=== PATIENT | female | born 1935 | race African-American/Black ===

== ENCOUNTER 2018-12-14 13:54 | Inpatient (IN) ==
[2018-12-14 15:12] LABS: Basophils # 0.1 10*3/uL (0.0-0.2); Basophils % 1.1 % (0.0-0.8); Eosinophils # 0.1 10*3/uL (0.0-0.87); Eosinophils % 2.7 % (0.00-10.9); Hematocrit 34.3 VOL% (35.7-47.0); Hemoglobin 10.7 GM/DL (12.0-16.0); Immature Granulocytes % 0.2 %; Immature Granulocytes Absolute 0.01 #; Lymphocytes % 38.7 % (21.3-54.2); Mean Corpuscular HGB Conc 31.2 GM/DL (32-36); Mean Corpuscular Hemoglobin 25 PG (27-34); Mean Corpuscular Volume 80.7 FL (87-102); Mean Platelet Volume 10.4 FL (9.6-12.0); Monocytes # 0.3 10*3/uL (0.11-0.8); Monocytes % 5.7 % (1.7-12.7); Neutrophils # 2.7 10*3/uL (1.4-7.4); Neutrophils % 51.6 % (38.7-73.9); Platelet Count 287 T/CUMM (130-400); Red Blood Count 4.25 MC/CUMM (3.8-5.5); Red Cell Distribution Width 16.4 % (9.3-17.3); White Blood Count 5.3 T/CUMM (4-12)
[2018-12-14 15:38] LABS: Albumin 3.2 G/DL (3.4-5.0); Bilirubin,Total 0.5 MG/DL (0.2-1.0); Calcium 9.1 MG/DL (8.5-10.1); Osmolality,Calculated 292.3 MOS/KG (273-304); Potassium 4.8 MMOL/L (3.5-5.1); Total Protein 7.4 G/DL (6.4-8.3)
[2018-12-14] MEDS ORDERED: METOPROLOL TARTRATE 5 MG/5 ML VIAL IV STA (15:41)
[2018-12-14] MEDS ORDERED: HYDROmorphone 2 MG/1 ML VIAL ONE (15:53)
[2018-12-14] MEDS ORDERED: ONDANSETRON 4 MG/2 ML VIAL ONE (15:53)
[2018-12-14] MEDS ORDERED: HYDROmorphone 2 MG/1 ML VIAL IV STA (16:00)
[2018-12-14] MEDS ORDERED: ONDANSETRON 4 MG/2 ML VIAL IV STA (16:00)
[2018-12-14 16:17] LABS: Sedimentation Rate-Westergren 78 MM/HR (0-30)
[2018-12-14] MEDS ORDERED: ONDANSETRON 4 MG/2 ML VIAL IV PRN (16:39)
[2018-12-14] MEDS ORDERED: hydrALAZINE 20 MG/1 ML VIAL IV PRN (17:12)
[2018-12-14] MEDS ORDERED: amLODIPine 5 MG TABLET PO SCH (17:14)
[2018-12-14 17:32] LABS: Troponin I 0.261 NG/ML (0.00-0.045)
[2018-12-14] MEDS: ENOXAPARIN 60 MG/0.6 ML SYRINGE SUBCUT SCH (18:02)
[2018-12-14] MEDS: SODIUM CHLORIDE 0.9% 1,000 ML IV SCH (18:02)
[2018-12-14 18:07] LABS: Folate > 24.0 NG/ML (5.4-24.0); Vitamin B12 744 PG/ML (211-911)
[2018-12-14] MEDS: ROSUVASTATIN 20 MG TABLET PO SCH (21:15)
[2018-12-15 05:43] LABS: Basophils % 0.4 % (0.0-0.8); Eosinophils % 0.3 % (0.00-10.9); Hematocrit 30.3 VOL% (35.7-47.0); Hemoglobin 9.4 GM/DL (12.0-16.0); Immature Granulocytes % 0.3 %; Immature Granulocytes Absolute 0.02 #; Lymphocytes # 1.5 10*3/uL (1.4-4.0); Lymphocytes % 20.5 % (21.3-54.2); Mean Corpuscular Hemoglobin 25 PG (27-34); Mean Platelet Volume 12.2 FL (9.6-12.0); Monocytes # 0.2 10*3/uL (0.11-0.8); Monocytes % 3.4 % (1.7-12.7); Neutrophils # 5.3 10*3/uL (1.4-7.4); Neutrophils % 75.1 % (38.7-73.9); Platelet Count 246 T/CUMM (130-400); Red Blood Count 3.74 MC/CUMM (3.8-5.5); Red Cell Distribution Width 16.7 % (9.3-17.3); White Blood Count 7.1 T/CUMM (4-12)
[2018-12-15 05:46] LABS: Apearance,Urine Slightly Hazy (Clear); Bacteria,Urine Occasional /HPF (Few); Bilirubin,Urine Negative (Negative); Blood, Urine Negative (Negative); Glucose,Urine (UA) Negative (Negative); Ketones,Urine Negative (Negative); Mucus,Urine Occasional /LPF (Occasional); Nitrite,Urine Negative (Negative); Protein,Urine >=500 MG/DL; RBC,Urine 1 /HPF (0-4); Squamous Epithelial Cell,Urine Occasional /HPF (0-10); Urine Color Yellow (Yellow); Urine Specific Gravity 1.012 (1.001-1.035); Urine Urobilinogen < 2.0 EU/DL (0.2-1.0); WBC,Urine 3 /HPF (0-6)
[2018-12-15 06:04] LABS: Calcium 8.6 MG/DL (8.5-10.1); Osmolality,Calculated 289.5 MOS/KG (273-304); Potassium 4.9 MMOL/L (3.5-5.1); Risk Ratio 3.62; VLDL CHOLESTEROL 20.4 MG/DL
[2018-12-15] MEDS ORDERED: LEVOTHYROXINE 112 MCG TABLET PO SCH (07:00)
[2018-12-15] MEDS ORDERED: LOSARTAN 50 MG TABLET PO SCH (09:00)
[2018-12-15] MEDS: PANTOPRAZOLE 40 MG TABLET PO SCH (09:25)
[2018-12-15] MEDS: ASPIRIN EC 325 MG TABLET PO SCH (09:25)
[2018-12-15] MEDS: SODIUM CHLORIDE 0.9% 1,000 ML IV SCH (09:31)
[2018-12-15] MEDS ORDERED: amLODIPine 5 MG TABLET PO SCH (10:00)
[2018-12-15] MEDS ORDERED: LORazepam 2 MG/1 ML VIAL IV STA (11:35)
[2018-12-15] MEDS ORDERED: LORazepam 2 MG/1 ML VIAL IV ONE (12:00)
[2018-12-15 14:49] LABS: % Iron Saturation 11.4 % (18-50); Ferritin 26.8 ng/ml (8-252)
[2018-12-15] MEDS: FERROUS SULFATE 325 MG TABLET PO SCH (17:44)
[2018-12-15 18:41] LABS: Folate 15.9 NG/ML (5.4-24.0)
[2018-12-15] MEDS: ENOXAPARIN 60 MG/0.6 ML SYRINGE SUBCUT SCH (19:34)
[2018-12-15] MEDS: ROSUVASTATIN 20 MG TABLET PO SCH (21:08)
[2018-12-15] MEDS: amLODIPine 5 MG TABLET PO SCH (21:08)
[2018-12-16 05:21] LABS: Basophils # 0.1 10*3/uL (0.0-0.2); Basophils % 0.9 % (0.0-0.8); Eosinophils # 0.2 10*3/uL (0.0-0.87); Eosinophils % 2.8 % (0.00-10.9); Hematocrit 30.7 VOL% (35.7-47.0); Hemoglobin 9.6 GM/DL (12.0-16.0); Immature Granulocytes % 0.3 %; Immature Granulocytes Absolute 0.02 #; Lymphocytes # 2.2 10*3/uL (1.4-4.0); Lymphocytes % 37.4 % (21.3-54.2); Mean Corpuscular HGB Conc 31.3 GM/DL (32-36); Mean Corpuscular Hemoglobin 25 PG (27-34); Mean Corpuscular Volume 80.2 FL (87-102); Mean Platelet Volume 11.2 FL (9.6-12.0); Monocytes # 0.3 10*3/uL (0.11-0.8); Monocytes % 5.2 % (1.7-12.7); Neutrophils # 3.1 10*3/uL (1.4-7.4); Neutrophils % 53.4 % (38.7-73.9); Platelet Count 290 T/CUMM (130-400); Red Blood Count 3.83 MC/CUMM (3.8-5.5); Red Cell Distribution Width 16.3 % (9.3-17.3); White Blood Count 5.8 T/CUMM (4-12)
[2018-12-16 05:39] LABS: Calcium 8.3 MG/DL (8.5-10.1); Osmolality,Calculated 292.1 MOS/KG (273-304)
[2018-12-16] MEDS: LEVOTHYROXINE 112 MCG TABLET PO SCH (06:24)
[2018-12-16] MEDS: ASPIRIN EC 325 MG TABLET PO SCH (09:50)
[2018-12-16] MEDS: PANTOPRAZOLE 40 MG TABLET PO SCH (09:50)
[2018-12-16] MEDS: amLODIPine 5 MG TABLET PO SCH ×2 (09:50→21:29)
[2018-12-16] MEDS: FERROUS SULFATE 325 MG TABLET PO SCH (09:50)
[2018-12-16] MEDS: ROSUVASTATIN 20 MG TABLET PO SCH (21:29)
[2018-12-17] MEDS: PANTOPRAZOLE 40 MG TABLET PO SCH (08:55)
[2018-12-17] MEDS: LEVOTHYROXINE 112 MCG TABLET PO SCH (08:55)
[2018-12-17] MEDS: FERROUS SULFATE 325 MG TABLET PO SCH (08:55)
[2018-12-17] MEDS: amLODIPine 5 MG TABLET PO SCH (08:55)
[2018-12-17] MEDS ORDERED: ACETAMINOPHEN 325 MG/10.15 ML UDCUP PO PRN (10:04)
[2018-12-17] MEDS ORDERED: ACETAMINOPHEN 325 MG TABLET PO PRN (10:07)
[2018-12-17] MEDS: DOCUSATE SODIUM 100 MG CAPSULE PO SCH (15:38)
[2018-12-17] MEDS: hydrALAZINE 10 MG TABLET PO SCH ×2 (15:38→21:33)
[2018-12-17] MEDS: CARVEDILOL 3.125 MG TABLET PO SCH ×2 (15:38→21:33)
[2018-12-17] MEDS: DONEPEZIL 5 MG TABLET PO SCH (15:38)
[2018-12-17] MEDS: MEMANTINE 5 MG TABLET PO SCH ×2 (15:38→21:33)
[2018-12-17] MEDS: ROSUVASTATIN 20 MG TABLET PO SCH (21:32)
[2018-12-17 21:43] LABS: Barbiturates Screen,Urine Negative (Negative); Benzodiazepines Screen,Urine Negative (Negative); Cannabinoid Screen,Urine Negative (Negative); Opiate Screen,Urine Negative (Negative); Phencyclidine Screen,Urine Negative (Negative)
[2018-12-18] MEDS: LEVOTHYROXINE 112 MCG TABLET PO SCH (06:21)
[2018-12-18] MEDS: MEMANTINE 5 MG TABLET PO SCH (08:16)
[2018-12-18] MEDS: DOCUSATE SODIUM 100 MG CAPSULE PO SCH (08:16)
[2018-12-18] MEDS: PANTOPRAZOLE 40 MG TABLET PO SCH (08:16)
[2018-12-18] MEDS: FERROUS SULFATE 325 MG TABLET PO SCH (08:16)
[2018-12-18] MEDS: hydrALAZINE 10 MG TABLET PO SCH (08:16)
[2018-12-18] MEDS: CARVEDILOL 3.125 MG TABLET PO SCH (08:16)
[2018-12-18] MEDS: DONEPEZIL 5 MG TABLET PO SCH (08:16)
[2018-12-18] MEDS ORDERED: BISACODYL 10 MG SUPP RECTAL ONE (09:31)
[2018-12-18] MEDS ORDERED: SODIUM PHOSPHATE ENEMA 133 ML BOTTLE RECTAL ONE (09:32)
[2018-12-18 15:31] VITALS: BP 159/85
[2018-12-20 08:53] LABS: Albumin (SPE) 3.7 G/DL (3.2-5.3); Total Protein (Chem) 7.1 G/DL (6.4-8.3)
[2018-12-20 08:54] LABS: Albumin (SPE) Rel % 52.5 %; Alpha 1 (SPE) 0.2 G/DL (0.1-0.4); Alpha 1 (SPE) Rel % 3.4 %; Alpha 2 (SPE) Rel % 13.8 %; Beta (SPE) 0.9 G/DL (0.5-1.1); Beta (SPE) Rel % 12.5 %; Gamma (SPE) 1.3 G/DL (0.7-1.7); Gamma (SPE) Rel % 17.8 %
== END 2018-12-18 13:20 | disposition home health service (06) | DRG 884 ==
LOC: N.ED 13:54 → N.EDINP 15:44 → N.5E 17:24
PROVIDERS: ADMIT Internal Medicine; ATTEND Internal Medicine

== ENCOUNTER 2019-07-14 15:03 | Inpatient (IN) ==
[2019-07-14 17:28] LABS: Basophils # 0.1 10*3/uL (0.0-0.2); Basophils % 0.8 % (0.0-0.8); Eosinophils # 0.1 10*3/uL (0.0-0.87); Eosinophils % 1.6 % (0.00-10.9); Immature Granulocytes % 0.2 %; Immature Granulocytes Absolute 0.01 #; Lymphocytes % 32.2 % (21.3-54.2); Mean Corpuscular HGB Conc 32.3 GM/DL (32-36); Mean Corpuscular Volume 80.3 FL (87-102); Mean Platelet Volume 11.6 FL (9.6-12.0); Monocytes % 7.2 % (1.7-12.7); Platelet Count 241 T/CUMM (130-400); Red Blood Count 3.86 MC/CUMM (3.8-5.5); White Blood Count 6.1 T/CUMM (4-12)
[2019-07-14 17:56] LABS: PT Patient Result 11.2 SECS (9.6-12.2)
[2019-07-14 17:58] LABS: Barbiturates Screen,Urine Negative (Negative); Benzodiazepines Screen,Urine Negative (Negative); Cannabinoid Screen,Urine Negative (Negative); Opiate Screen,Urine Negative (Negative); Phencyclidine Screen,Urine Negative (Negative)
[2019-07-14 18:05] LABS: Apearance,Urine CLEAR (Clear); Bacteria,Urine Occasional /HPF (Few); Bilirubin,Urine Negative (Negative); Blood, Urine Negative (Negative); Glucose,Urine (UA) Negative (Negative); Ketones,Urine Negative (Negative); Mucus,Urine Occasional /LPF (Occasional); Nitrite,Urine Negative (Negative); Protein,Urine 30 MG/DL; RBC,Urine 3 /HPF (0-4); Squamous Epithelial Cell,Urine Occasional /HPF (0-10); Urine Color Straw (Yellow); Urine Specific Gravity 1.005 (1.001-1.035); Urine Urobilinogen < 2.0 EU/DL (0.2-1.0); WBC,Urine <1 /HPF (0-6)
[2019-07-14] MEDS ORDERED: hydrALAZINE 20 MG/1 ML VIAL IV ONE (18:08)
[2019-07-14 18:11] LABS: Albumin 3.7 G/DL (3.4-5.0); Bilirubin,Total 0.5 MG/DL (0.2-1.0); Calcium 9.7 MG/DL (8.5-10.1); Osmolality,Calculated 299.5 MOS/KG (273-304); Thyroid Stimulating Hormone 1.36 uIU/ml (0.358-3.74); Total Protein 8.1 G/DL (6.4-8.3)
[2019-07-14] MEDS ORDERED: ENOXAPARIN 40 MG/0.4 ML SYRINGE ONE (18:19)
[2019-07-14] MEDS: SODIUM CHLORIDE 0.9% 1,000 ML IV SCH (18:28)
[2019-07-14] MEDS ORDERED: hydrALAZINE 20 MG/1 ML VIAL IV PRN (18:41)
[2019-07-14] MEDS: hydrALAZINE 25 MG TABLET PO SCH (20:20)
[2019-07-14] MEDS ORDERED: cloNIDine 0.1 MG TABLET PO SCH (21:00)
[2019-07-14] MEDS ORDERED: ASPIRIN CHEW 81 MG TABLET PO SCH (21:00)
[2019-07-14] MEDS ORDERED: ROSUVASTATIN 20 MG TABLET PO SCH (21:00)
[2019-07-14] MEDS ORDERED: ENOXAPARIN 30 MG/0.3 ML SYRINGE SUBCUT SCH (21:00)
[2019-07-15] MEDS: SODIUM CHLORIDE 0.9% 1,000 ML IV SCH ×2 (03:28→11:41)
[2019-07-15 04:16] LABS: Basophils # 0.1 10*3/uL (0.0-0.2); Eosinophils # 0.2 10*3/uL (0.0-0.87); Eosinophils % 3.2 % (0.00-10.9); Hematocrit 26.7 VOL% (35.7-47.0); Hemoglobin 8.7 GM/DL (12.0-16.0); Immature Granulocytes % 0.4 %; Immature Granulocytes Absolute 0.02 #; Lymphocytes # 1.7 10*3/uL (1.4-4.0); Lymphocytes % 34.9 % (21.3-54.2); Mean Corpuscular HGB Conc 32.6 GM/DL (32-36); Mean Corpuscular Volume 79.9 FL (87-102); Mean Platelet Volume 10.5 FL (9.6-12.0); Monocytes % 12.5 % (1.7-12.7); Platelet Count 200 T/CUMM (130-400); Red Blood Count 3.34 MC/CUMM (3.8-5.5); Red Cell Distribution Width 15.9 % (9.3-17.3)
[2019-07-15 04:59] LABS: Bilirubin,Total 0.8 MG/DL (0.2-1.0); Calcium 8.5 MG/DL (8.5-10.1); Total Protein 6.6 G/DL (6.4-8.3)
[2019-07-15] MEDS ORDERED: LEVOTHYROXINE 125 MCG TABLET PO SCH (07:00)
[2019-07-15] MEDS ORDERED: PANTOPRAZOLE 40 MG TABLET PO SCH (09:00)
[2019-07-15] MEDS ORDERED: POTASSIUM CHLORIDE 20 MEQ TABLET PO SCH (09:00)
[2019-07-15] MEDS ORDERED: LOSARTAN 50 MG TABLET PO SCH (09:00)
[2019-07-15] MEDS ORDERED: FERROUS SULFATE 325 MG TABLET PO SCH (09:00)
[2019-07-15] MEDS ORDERED: FUROSEMIDE 20 MG TABLET PO SCH (09:00)
[2019-07-15] MEDS: hydrALAZINE 25 MG TABLET PO SCH (09:06)
[2019-07-15 10:30] LABS: Troponin I 0.303 NG/ML (0.00-0.045)
[2019-07-15 15:56] VITALS: BP 187/78
== END 2019-07-15 18:00 | disposition home health service (06) | DRG 309 ==
LOC: EDBD → EDUNIT# → N.ED 15:03 → N.EDINP 17:17 → SUATTDRO 17:17 → N.TELEN 18:04
PROVIDERS: ADMIT Emergency Medicine; ATTEND Internal Medicine

== ENCOUNTER 2019-07-18 14:44 | Observation (INO) ==
[2019-07-18 15:25] LABS: Basophils % 0.7 % (0.0-0.8); Eosinophils # 0.2 10*3/uL (0.0-0.87); Eosinophils % 2.5 % (0.00-10.9); Hemoglobin 8.9 GM/DL (12.0-16.0); Immature Granulocytes % 0.3 %; Immature Granulocytes Absolute 0.02 #; Mean Corpuscular HGB Conc 31.8 GM/DL (32-36); Mean Corpuscular Volume 81.2 FL (87-102); Mean Platelet Volume 11.4 FL (9.6-12.0); Monocytes % 8.7 % (1.7-12.7); Neutrophils % 54.8 % (38.7-73.9); Platelet Count 206 T/CUMM (130-400); Red Blood Count 3.45 MC/CUMM (3.8-5.5); Red Cell Distribution Width 15.9 % (9.3-17.3)
[2019-07-18 15:41] LABS: Alanine Aminotransferase 21 U/L (13-56); Albumin 3.4 G/DL (3.4-5.0); Alkaline Phosphatase 72 U/L (45-117); Aspartate Amino Transferase 20 U/L (0-37); Blood Urea Nitrogen 53 MG/DL (7-18); Estimated Glom Filtration Rate 14 ML/MIN; Glucose 86 MG/DL (74-106); Osmolality,Calculated 285.8 MOS/KG (273-304); Total Protein 7.2 G/DL (6.4-8.3)
[2019-07-18] MEDS ORDERED: INSULIN REGULAR 100 UNIT/ML IV STA (17:15)
[2019-07-18] MEDS ORDERED: DEXTROSE 50% 25 GM/50 ML VIAL IV STA (17:16)
[2019-07-18] MEDS ORDERED: ACETAMINOPHEN 325 MG TABLET PO PRN (17:17)
[2019-07-18] MEDS ORDERED: ZALEPLON 5 MG CAPSULE PO PRN (17:17)
[2019-07-18] MEDS ORDERED: guaiFENesin/DM ER 600-30 MG TABLET PO PRN (17:17)
[2019-07-18] MEDS ORDERED: diphenhydrAMINE CAP 25 MG CAPSULE PO PRN (17:17)
[2019-07-18] MEDS ORDERED: ACETAMINOPHEN 500 MG TABLET PO PRN (17:41)
[2019-07-18] MEDS ORDERED: CALCIUM GLUCONATE 1,000 MG in SODIUM CHLORIDE 0.9% 100 ML IV ONE (18:00)
[2019-07-18] MEDS ORDERED: DEXTROSE 50% 25 GM/50 ML SYRINGE IV ONE (18:32)
[2019-07-18] MEDS ORDERED: hydrALAZINE 20 MG/1 ML VIAL IV PRN (20:17)
[2019-07-19] MEDS: ASPIRIN CHEW 81 MG TABLET PO SCH ×2 (00:08→21:52)
[2019-07-19] MEDS: DOCUSATE SODIUM 100 MG CAPSULE PO SCH ×3 (00:10→21:52)
[2019-07-19] MEDS: HEPARIN 5,000 UNIT/1 ML VIAL SUBCUT SCH ×3 (00:10→14:40)
[2019-07-19] MEDS: ROSUVASTATIN 20 MG TABLET PO SCH ×2 (00:10→21:52)
[2019-07-19 04:20] LABS: Troponin I 0.495 NG/ML (0.00-0.045)
[2019-07-19 04:46] LABS: Basophils % 0.6 % (0.0-0.8); Eosinophils # 0.2 10*3/uL (0.0-0.87); Eosinophils % 3.2 % (0.00-10.9); Hematocrit 26.5 VOL% (35.7-47.0); Hemoglobin 8.5 GM/DL (12.0-16.0); Immature Granulocytes % 0.5 %; Immature Granulocytes Absolute 0.03 #; Lymphocytes # 1.8 10*3/uL (1.4-4.0); Lymphocytes % 28.8 % (21.3-54.2); Mean Corpuscular HGB Conc 32.1 GM/DL (32-36); Mean Corpuscular Volume 79.8 FL (87-102); Monocytes % 9.4 % (1.7-12.7); Neutrophils % 57.5 % (38.7-73.9); Platelet Count 207 T/CUMM (130-400); Red Blood Count 3.32 MC/CUMM (3.8-5.5); Red Cell Distribution Width 15.9 % (9.3-17.3); White Blood Count 6.3 T/CUMM (4-12)
[2019-07-19 05:19] LABS: Bilirubin,Total 0.6 MG/DL (0.2-1.0); Total Protein 6.5 G/DL (6.4-8.3)
[2019-07-19 05:23] LABS: Free T4 (Free Thyroxine) 1.38 NG/DL (0.76-1.46); Risk Ratio 1.88; Thyroid Stimulating Hormone 1.73 uIU/ml (0.358-3.74); VLDL CHOLESTEROL 9.2 MG/DL
[2019-07-19] MEDS: LEVOTHYROXINE 125 MCG TABLET PO SCH (06:59)
[2019-07-19] MEDS: FERROUS SULFATE 325 MG TABLET PO SCH (08:59)
[2019-07-19] MEDS: HydrOXYzine PAMOATE 25 MG CAPSULE PO SCH (08:59)
[2019-07-19] MEDS: PANTOPRAZOLE 40 MG TABLET PO SCH (08:59)
[2019-07-19] MEDS ORDERED: LORazepam 2 MG/1 ML VIAL IV ONE (12:18)
[2019-07-19 13:10] LABS: % Iron Saturation 18.3 % (18-50); Uric Acid 7.8 MG/DL (2.6-6.0)
[2019-07-19 15:30] LABS: Total Protein 8.2 G/DL (6.4-8.3)
[2019-07-19 17:35] LABS: HIV Antigen/Antibody Result Nonreactive (Nonreactive); Hepatitis B Surface Ab Result Positive; Hepatitis B Surface Ag Quant 0.26 Index; Hepatitis B Surface Ag Result Negative (Negative); Hepatitis C Virus Ab Quant 0.05 Index; Hepatitis C Virus Ab Result Negative (Negative)
[2019-07-19 19:57] LABS: Apearance,Urine CLEAR (Clear); Bilirubin,Urine Negative (Negative); Blood, Urine Negative (Negative); Glucose,Urine (UA) Negative (Negative); Hyaline Casts,Urine 1 /LPF (0-3); Ketones,Urine Negative (Negative); Mucus,Urine Occasional /LPF (Occasional); Nitrite,Urine Negative (Negative); Protein,Urine 100 MG/DL; RBC,Urine 2 /HPF (0-4); Squamous Epithelial Cell,Urine Occasional /HPF (0-10); Urine Color Yellow (Yellow); Urine Specific Gravity 1.008 (1.001-1.035); Urine Urobilinogen < 2.0 EU/DL (0.2-1.0); WBC,Urine 2 /HPF (0-6)
[2019-07-20 06:15] LABS: Total Protein (Chem) 8.2 G/DL (6.4-8.3)
[2019-07-20] MEDS: LEVOTHYROXINE 125 MCG TABLET PO SCH (06:49)
[2019-07-20 08:03] LABS: Basophils % 0.7 % (0.0-0.8); Eosinophils # 0.2 10*3/uL (0.0-0.87); Eosinophils % 3.8 % (0.00-10.9); Hemoglobin 9.4 GM/DL (12.0-16.0); Immature Granulocytes % 0.3 %; Immature Granulocytes Absolute 0.02 #; Lymphocytes # 1.9 10*3/uL (1.4-4.0); Lymphocytes % 31.3 % (21.3-54.2); Mean Corpuscular HGB Conc 32.4 GM/DL (32-36); Mean Corpuscular Volume 80.6 FL (87-102); Mean Platelet Volume 12.2 FL (9.6-12.0); Monocytes % 9.7 % (1.7-12.7); Neutrophils % 54.2 % (38.7-73.9); Platelet Count 229 T/CUMM (130-400)
[2019-07-20 08:21] LABS: Albumin 3.1 G/DL (3.4-5.0); Bilirubin,Total 0.4 MG/DL (0.2-1.0); Calcium 8.7 MG/DL (8.5-10.1); Osmolality,Calculated 295.3 MOS/KG (273-304)
[2019-07-20] MEDS ORDERED: amLODIPine 5 MG TABLET PO SCH (09:00)
[2019-07-20] MEDS ORDERED: amLODIPine 10 MG TABLET PO SCH (09:00)
[2019-07-20 09:21] LABS: Albumin (SPE) 5.1 G/DL (3.2-5.3); Alpha 1 (SPE) 0.2 G/DL (0.1-0.4); Alpha 1 (SPE) Rel % 2.7 %; Alpha 2 (SPE) 0.9 G/DL (0.4-1.0); Alpha 2 (SPE) Rel % 11.1 %; Beta (SPE) 0.7 G/DL (0.5-1.1); Beta (SPE) Rel % 8.8 %; Gamma (SPE) 1.3 G/DL (0.7-1.7); Gamma (SPE) Rel % 15.4 %
[2019-07-20] MEDS: PANTOPRAZOLE 40 MG TABLET PO SCH (10:00)
[2019-07-20] MEDS: HydrOXYzine PAMOATE 25 MG CAPSULE PO SCH (10:00)
[2019-07-20] MEDS: FERROUS SULFATE 325 MG TABLET PO SCH (10:00)
[2019-07-20] MEDS: DOCUSATE SODIUM 100 MG CAPSULE PO SCH (10:00)
[2019-07-20 12:06] VITALS: BP 162/82
[2019-07-21 14:36] LABS: Myeloperoxidase Antibody < 0.2 U
[2019-07-21 17:21] LABS: Myeloperoxidase Antibodies SEE COMMENTS
== END 2019-07-20 17:45 | disposition home or self-care (01) ==
LOC: N.EDINP 14:44 → N.ED 14:44 → N.TELES 17:40
PROVIDERS: ADMIT Internal Medicine; ATTEND Internal Medicine

== ENCOUNTER 2019-07-21 19:36 | Observation (INO) ==
[2019-07-21 20:46] LABS: Basophils % 0.4 % (0.0-0.8); Eosinophils # 0.2 10*3/uL (0.0-0.87); Eosinophils % 2.3 % (0.00-10.9); Hematocrit 30.7 VOL% (35.7-47.0); Hemoglobin 9.7 GM/DL (12.0-16.0); Immature Granulocytes % 0.4 %; Immature Granulocytes Absolute 0.03 #; Lymphocytes # 2.2 10*3/uL (1.4-4.0); Lymphocytes % 28.5 % (21.3-54.2); Mean Corpuscular HGB Conc 31.6 GM/DL (32-36); Mean Platelet Volume 12.2 FL (9.6-12.0); Monocytes % 6.6 % (1.7-12.7); Neutrophils % 61.8 % (38.7-73.9); Platelet Count 211 T/CUMM (130-400); Red Blood Count 3.79 MC/CUMM (3.8-5.5); Red Cell Distribution Width 16.5 % (9.3-17.3); White Blood Count 7.8 T/CUMM (4-12)
[2019-07-21 20:53] LABS: PT Patient Result 11.1 SECS (9.6-12.2)
[2019-07-21 20:57] LABS: Albumin 3.6 G/DL (3.4-5.0); Bilirubin,Total 0.5 MG/DL (0.2-1.0); Calcium 9.3 MG/DL (8.5-10.1); Osmolality,Calculated 293.3 MOS/KG (273-304); Total Protein 8.1 G/DL (6.4-8.3)
[2019-07-21] MEDS ORDERED: ACETAMINOPHEN 325 MG TABLET PO PRN (23:32)
[2019-07-22 01:13] LABS: Basophils % 0.5 % (0.0-0.8); Eosinophils # 0.2 10*3/uL (0.0-0.87); Eosinophils % 2.8 % (0.00-10.9); Hematocrit 27.6 VOL% (35.7-47.0); Hemoglobin 8.9 GM/DL (12.0-16.0); Immature Granulocytes % 0.3 %; Immature Granulocytes Absolute 0.02 #; Lymphocytes # 2.1 10*3/uL (1.4-4.0); Lymphocytes % 27.9 % (21.3-54.2); Mean Corpuscular HGB Conc 32.2 GM/DL (32-36); Mean Platelet Volume 11.1 FL (9.6-12.0); Monocytes % 8.5 % (1.7-12.7); Platelet Count 217 T/CUMM (130-400); Red Blood Count 3.45 MC/CUMM (3.8-5.5); Red Cell Distribution Width 16.3 % (9.3-17.3); White Blood Count 7.6 T/CUMM (4-12)
[2019-07-22 01:35] LABS: Troponin I 0.459 NG/ML (0.00-0.045)
[2019-07-22 01:50] LABS: Albumin 3.6 G/DL (3.4-5.0); Bilirubin,Total 0.4 MG/DL (0.2-1.0); Calcium 9.7 MG/DL (8.5-10.1); Osmolality,Calculated 299.8 MOS/KG (273-304); Thyroid Stimulating Hormone 1.25 uIU/ml (0.358-3.74); Total Protein 6.8 G/DL (6.4-8.3)
[2019-07-22 06:12] LABS: Troponin I 0.501 NG/ML (0.00-0.045)
[2019-07-22] MEDS: LEVOTHYROXINE 125 MCG TABLET PO SCH (06:24)
[2019-07-22 08:54] LABS: Apearance,Urine Slightly Hazy (Clear); Bacteria,Urine Occasional /HPF (Few); Bilirubin,Urine Negative (Negative); Blood, Urine Negative (Negative); Glucose,Urine (UA) Negative (Negative); Ketones,Urine Negative (Negative); Mucus,Urine Occasional /LPF (Occasional); Nitrite,Urine Negative (Negative); Protein,Urine 100 MG/DL; RBC,Urine 4 /HPF (0-4); Squamous Epithelial Cell,Urine Occasional /HPF (0-10); Urine Color Yellow (Yellow); Urine Urobilinogen < 2.0 EU/DL (0.2-1.0); WBC,Urine 55 /HPF (0-6)
[2019-07-22] MEDS: amLODIPine 10 MG TABLET PO SCH (12:16)
[2019-07-22] MEDS: FERROUS SULFATE 325 MG TABLET PO SCH (12:16)
[2019-07-22] MEDS: PANTOPRAZOLE 40 MG TABLET PO SCH (12:16)
[2019-07-22] MEDS: LEVOFLOXACIN INJ 500 MG in PREMIX 1 EACH IV SCH (12:20)
[2019-07-22 12:49] LABS: Troponin I 0.485 NG/ML (0.00-0.045)
[2019-07-22] MEDS: carvediloL 3.125 MG TABLET PO SCH (20:45)
[2019-07-22] MEDS: ROSUVASTATIN 20 MG TABLET PO SCH (20:45)
[2019-07-22] MEDS: ASPIRIN CHEW 81 MG TABLET PO SCH (20:45)
[2019-07-23] MEDS: amLODIPine 10 MG TABLET PO SCH (09:15)
[2019-07-23] MEDS: FERROUS SULFATE 325 MG TABLET PO SCH (09:16)
[2019-07-23] MEDS: PANTOPRAZOLE 40 MG TABLET PO SCH (09:16)
[2019-07-23] MEDS: carvediloL 3.125 MG TABLET PO SCH ×2 (09:16→21:23)
[2019-07-23] MEDS: LEVOTHYROXINE 125 MCG TABLET PO SCH (09:17)
[2019-07-23] MEDS: ASCORBIC ACID 500 MG TABLET PO SCH ×2 (11:23→21:23)
[2019-07-23] MEDS ORDERED: ONDANSETRON 4 MG/2 ML VIAL IV PRN (18:17)
[2019-07-23] MEDS: ASPIRIN CHEW 81 MG TABLET PO SCH (18:32)
[2019-07-23] MEDS: ROSUVASTATIN 20 MG TABLET PO SCH (21:23)
[2019-07-24 05:39] LABS: Basophils % 0.5 % (0.0-0.8); Eosinophils # 0.2 10*3/uL (0.0-0.87); Eosinophils % 2.6 % (0.00-10.9); Hematocrit 26.5 VOL% (35.7-47.0); Hemoglobin 8.5 GM/DL (12.0-16.0); Immature Granulocytes % 0.3 %; Immature Granulocytes Absolute 0.02 #; Lymphocytes # 1.6 10*3/uL (1.4-4.0); Lymphocytes % 25.3 % (21.3-54.2); Mean Corpuscular HGB Conc 32.1 GM/DL (32-36); Mean Corpuscular Volume 80.5 FL (87-102); Mean Platelet Volume 11.4 FL (9.6-12.0); Monocytes % 7.7 % (1.7-12.7); Neutrophils % 63.6 % (38.7-73.9); Platelet Count 224 T/CUMM (130-400); Red Blood Count 3.29 MC/CUMM (3.8-5.5); Red Cell Distribution Width 16.2 % (9.3-17.3); White Blood Count 6.5 T/CUMM (4-12)
[2019-07-24] MEDS: LEVOTHYROXINE 125 MCG TABLET PO SCH (06:00)
[2019-07-24 06:06] LABS: Calcium 9.6 MG/DL (8.5-10.1)
[2019-07-24] MEDS ORDERED: SODIUM POLYSTYRENE SULFATE 15 GM/60 ML BOTTLE PO STA (08:34)
[2019-07-24] MEDS: amLODIPine 10 MG TABLET PO SCH (08:51)
[2019-07-24] MEDS: FERROUS SULFATE 325 MG TABLET PO SCH (08:51)
[2019-07-24] MEDS: PANTOPRAZOLE 40 MG TABLET PO SCH (08:52)
[2019-07-24] MEDS: ASCORBIC ACID 500 MG TABLET PO SCH ×2 (08:52→21:15)
[2019-07-24] MEDS: carvediloL 3.125 MG TABLET PO SCH ×2 (08:52→21:15)
[2019-07-24] MEDS: LEVOFLOXACIN INJ 500 MG in PREMIX 1 EACH IV SCH (11:02)
[2019-07-24 13:27] LABS: % Iron Saturation 14.8 % (18-50); Ferritin 74.9 ng/ml (8-252)
[2019-07-24] MEDS: ASPIRIN CHEW 81 MG TABLET PO SCH (18:12)
[2019-07-24] MEDS: ROSUVASTATIN 20 MG TABLET PO SCH (21:14)
[2019-07-25] MEDS: LEVOTHYROXINE 125 MCG TABLET PO SCH (07:43)
[2019-07-25] MEDS: carvediloL 3.125 MG TABLET PO SCH (10:15)
[2019-07-25] MEDS: FERROUS SULFATE 325 MG TABLET PO SCH (10:15)
[2019-07-25] MEDS: amLODIPine 10 MG TABLET PO SCH (10:16)
[2019-07-25] MEDS: PANTOPRAZOLE 40 MG TABLET PO SCH (10:18)
[2019-07-25] MEDS: ASCORBIC ACID 500 MG TABLET PO SCH (10:18)
[2019-07-25 12:56] VITALS: BP 150/70
== END 2019-07-25 14:20 | disposition home health service (06) ==
LOC: EDUNIT# → EDBD → N.EDINP 19:36 → N.ED 19:36 → N.TELES 07-22 00:30
PROVIDERS: ADMIT Internal Medicine; ATTEND Internal Medicine

== ENCOUNTER 2019-08-03 19:22 | Observation (INO) ==
[2019-08-03 21:12] LABS: Basophils % 0.4 % (0.0-0.8); Eosinophils # 0.1 10*3/uL (0.0-0.87); Eosinophils % 1.8 % (0.00-10.9); Hematocrit 31.6 VOL% (35.7-47.0); Immature Granulocytes % 0.4 %; Immature Granulocytes Absolute 0.03 #; Lymphocytes # 2.3 10*3/uL (1.4-4.0); Lymphocytes % 30.8 % (21.3-54.2); Mean Corpuscular HGB Conc 31.6 GM/DL (32-36); Mean Corpuscular Volume 80.8 FL (87-102); Mean Platelet Volume 10.6 FL (9.6-12.0); Monocytes % 7.4 % (1.7-12.7); Neutrophils % 59.2 % (38.7-73.9); Platelet Count 321 T/CUMM (130-400); Red Blood Count 3.91 MC/CUMM (3.8-5.5); Red Cell Distribution Width 16.5 % (9.3-17.3); White Blood Count 7.3 T/CUMM (4-12)
[2019-08-03 21:35] LABS: Alanine Aminotransferase 23 U/L (13-56); Albumin 3.5 G/DL (3.4-5.0); Alkaline Phosphatase 74 U/L (45-117); Aspartate Amino Transferase 21 U/L (0-37); Blood Urea Nitrogen 53 MG/DL (7-18); Calcium 8.9 MG/DL (8.5-10.1); Estimated Glom Filtration Rate 11 ML/MIN; Glucose 113 MG/DL (74-106); Osmolality,Calculated 287.8 MOS/KG (273-304); Total Protein 7.5 G/DL (6.4-8.3); Troponin I 0.374 NG/ML (0.00-0.045)
[2019-08-04 00:29] LABS: Barbiturates Screen,Urine Negative (Negative); Benzodiazepines Screen,Urine Negative (Negative); Cannabinoid Screen,Urine Negative (Negative); Opiate Screen,Urine Negative (Negative); Phencyclidine Screen,Urine Negative (Negative)
[2019-08-04] MEDS ORDERED: ONDANSETRON 4 MG/2 ML VIAL IV PRN (00:32)
[2019-08-04] MEDS ORDERED: ACETAMINOPHEN 325 MG TABLET PO PRN (00:32)
[2019-08-04] MEDS: SODIUM CHLORIDE 0.9% 1,000 ML IV SCH ×2 (03:23→17:07)
[2019-08-04 05:25] LABS: Basophils % 0.5 % (0.0-0.8); Eosinophils # 0.2 10*3/uL (0.0-0.87); Eosinophils % 2.8 % (0.00-10.9); Hematocrit 25.7 VOL% (35.7-47.0); Hemoglobin 8.3 GM/DL (12.0-16.0); Immature Granulocytes % 0.8 %; Immature Granulocytes Absolute 0.05 #; Lymphocytes # 1.7 10*3/uL (1.4-4.0); Lymphocytes % 27.2 % (21.3-54.2); Mean Corpuscular HGB Conc 32.3 GM/DL (32-36); Mean Corpuscular Volume 79.6 FL (87-102); Mean Platelet Volume 10.2 FL (9.6-12.0); Monocytes % 9.4 % (1.7-12.7); Neutrophils % 59.3 % (38.7-73.9); Platelet Count 251 T/CUMM (130-400); Red Blood Count 3.23 MC/CUMM (3.8-5.5); Red Cell Distribution Width 16.3 % (9.3-17.3); White Blood Count 6.2 T/CUMM (4-12)
[2019-08-04 05:49] LABS: Calcium 8.8 MG/DL (8.5-10.1); Osmolality,Calculated 292.4 MOS/KG (273-304)
[2019-08-04] MEDS: LEVOTHYROXINE 125 MCG TABLET PO SCH (06:15)
[2019-08-04] MEDS: FERROUS SULFATE 325 MG TABLET PO SCH (09:16)
[2019-08-04] MEDS: carvediloL 3.125 MG TABLET PO SCH ×2 (09:16→16:03)
[2019-08-04] MEDS: ENOXAPARIN 30 MG/0.3 ML SYRINGE SUBCUT SCH (09:16)
[2019-08-04] MEDS: amLODIPine 10 MG TABLET PO SCH (09:16)
[2019-08-04] MEDS: PANTOPRAZOLE 40 MG TABLET PO SCH (09:18)
[2019-08-04] MEDS: ASPIRIN CHEW 81 MG TABLET PO SCH (18:01)
[2019-08-04] MEDS: ROSUVASTATIN 20 MG TABLET PO SCH (20:53)
[2019-08-05 04:45] LABS: Basophils % 0.6 % (0.0-0.8); Eosinophils # 0.2 10*3/uL (0.0-0.87); Hematocrit 23.6 VOL% (35.7-47.0); Hemoglobin 7.5 GM/DL (12.0-16.0); Immature Granulocytes % 0.4 %; Immature Granulocytes Absolute 0.02 #; Lymphocytes # 1.6 10*3/uL (1.4-4.0); Lymphocytes % 29.7 % (21.3-54.2); Mean Corpuscular HGB Conc 31.8 GM/DL (32-36); Mean Corpuscular Volume 80.5 FL (87-102); Mean Platelet Volume 10.7 FL (9.6-12.0); Monocytes % 8.3 % (1.7-12.7); Platelet Count 237 T/CUMM (130-400); Red Blood Count 2.93 MC/CUMM (3.8-5.5); Red Cell Distribution Width 16.6 % (9.3-17.3); White Blood Count 5.4 T/CUMM (4-12)
[2019-08-05 05:14] LABS: % Iron Saturation 24.2 % (18-50); Ferritin 71.3 ng/ml (8-252)
[2019-08-05] MEDS: LEVOTHYROXINE 125 MCG TABLET PO SCH (06:10)
[2019-08-05] MEDS: SODIUM CHLORIDE 0.9% 1,000 ML IV SCH ×2 (06:10→17:59)
[2019-08-05 07:53] LABS: Folate 14.3 NG/ML (5.4-24.0)
[2019-08-05] MEDS: amLODIPine 10 MG TABLET PO SCH (09:21)
[2019-08-05] MEDS: PANTOPRAZOLE 40 MG TABLET PO SCH (09:21)
[2019-08-05] MEDS: FERROUS SULFATE 325 MG TABLET PO SCH (09:21)
[2019-08-05] MEDS: carvediloL 3.125 MG TABLET PO SCH ×2 (09:21→16:44)
[2019-08-05] MEDS: ENOXAPARIN 30 MG/0.3 ML SYRINGE SUBCUT SCH (09:21)
[2019-08-05] MEDS: ASPIRIN CHEW 81 MG TABLET PO SCH (18:01)
[2019-08-05] MEDS: ROSUVASTATIN 20 MG TABLET PO SCH (20:54)
[2019-08-06 05:29] LABS: Basophils % 0.6 % (0.0-0.8); Eosinophils # 0.2 10*3/uL (0.0-0.87); Eosinophils % 3.1 % (0.00-10.9); Hematocrit 21.3 VOL% (35.7-47.0); Immature Granulocytes % 0.6 %; Immature Granulocytes Absolute 0.03 #; Lymphocytes # 1.7 10*3/uL (1.4-4.0); Lymphocytes % 32.8 % (21.3-54.2); Mean Corpuscular HGB Conc 31.5 GM/DL (32-36); Mean Platelet Volume 11.2 FL (9.6-12.0); Monocytes % 8.1 % (1.7-12.7); Neutrophils % 54.8 % (38.7-73.9); Platelet Count 224 T/CUMM (130-400); Red Blood Count 2.63 MC/CUMM (3.8-5.5); Red Cell Distribution Width 16.6 % (9.3-17.3); White Blood Count 5.2 T/CUMM (4-12)
[2019-08-06 05:30] LABS: Hemoglobin 6.7 GM/DL (12.0-16.0)
[2019-08-06 05:38] LABS: Calcium 8.2 MG/DL (8.5-10.1); Osmolality,Calculated 305.4 MOS/KG (273-304)
[2019-08-06] MEDS: LEVOTHYROXINE 125 MCG TABLET PO SCH (06:18)
[2019-08-06] MEDS: SODIUM CHLORIDE 0.9% 1,000 ML IV SCH ×2 (06:21→19:04)
[2019-08-06] MEDS ORDERED: SODIUM CHLORIDE 0.9% 1,000 ML IV PRN (08:19)
[2019-08-06 08:41] LABS: Basophils % 0.6 % (0.0-0.8); Eosinophils # 0.2 10*3/uL (0.0-0.87); Eosinophils % 3.9 % (0.00-10.9); Hematocrit 22.9 VOL% (35.7-47.0); Hematocrit 23.3 VOL% (35.7-47.0); Hemoglobin 7.3 GM/DL (12.0-16.0); Immature Granulocytes % 0.2 %; Immature Granulocytes Absolute 0.01 #; Lymphocytes # 1.6 10*3/uL (1.4-4.0); Lymphocytes % 33.3 % (21.3-54.2); Mean Corpuscular HGB Conc 31.3 GM/DL (32-36); Mean Corpuscular Volume 81.5 FL (87-102); Mean Platelet Volume 9.9 FL (9.6-12.0); Monocytes % 7.7 % (1.7-12.7); Neutrophils % 54.3 % (38.7-73.9); Platelet Count 229 T/CUMM (130-400); Red Blood Count 2.86 MC/CUMM (3.8-5.5); Red Cell Distribution Width 16.7 % (9.3-17.3); White Blood Count 4.9 T/CUMM (4-12)
[2019-08-06 08:58] LABS: Hypochromasia 1+; Ovalocytes Slight; Platelet Estimate Adequate
[2019-08-06] MEDS: amLODIPine 10 MG TABLET PO SCH (09:32)
[2019-08-06] MEDS: FERROUS SULFATE 325 MG TABLET PO SCH (09:32)
[2019-08-06] MEDS: carvediloL 3.125 MG TABLET PO SCH ×2 (09:32→17:13)
[2019-08-06] MEDS: PANTOPRAZOLE 40 MG VIAL IV SCH ×2 (09:32→20:59)
[2019-08-06] MEDS ORDERED: POLYETHYLENE GLYCOL POWDER 17 GM PACK PO PRN (10:06)
[2019-08-06] MEDS: DOCUSATE SODIUM 100 MG CAPSULE PO SCH (10:59)
[2019-08-06 15:58] LABS: % Iron Saturation 23.4 % (18-50)
[2019-08-06] MEDS: ASPIRIN CHEW 81 MG TABLET PO SCH (18:06)
[2019-08-06] MEDS: ROSUVASTATIN 20 MG TABLET PO SCH (20:59)
[2019-08-07] MEDS: LEVOTHYROXINE 125 MCG TABLET PO SCH (06:26)
[2019-08-07 06:29] LABS: Basophils % 0.3 % (0.0-0.8); Eosinophils # 0.2 10*3/uL (0.0-0.87); Eosinophils % 3.9 % (0.00-10.9); Immature Granulocytes % 0.5 %; Immature Granulocytes Absolute 0.03 #; Lymphocytes # 1.5 10*3/uL (1.4-4.0); Lymphocytes % 25.3 % (21.3-54.2); Mean Corpuscular HGB Conc 32.1 GM/DL (32-36); Mean Corpuscular Volume 81.6 FL (87-102); Mean Platelet Volume 11.3 FL (9.6-12.0); Monocytes % 8.3 % (1.7-12.7); Neutrophils % 61.7 % (38.7-73.9); Platelet Count 214 T/CUMM (130-400); Red Blood Count 3.43 MC/CUMM (3.8-5.5); Red Cell Distribution Width 16.2 % (9.3-17.3); White Blood Count 5.9 T/CUMM (4-12)
[2019-08-07 06:52] LABS: Calcium 8.6 MG/DL (8.5-10.1)
[2019-08-07] MEDS: amLODIPine 10 MG TABLET PO SCH (09:27)
[2019-08-07] MEDS: carvediloL 3.125 MG TABLET PO SCH (09:28)
[2019-08-07] MEDS: PANTOPRAZOLE 40 MG VIAL IV SCH (09:28)
[2019-08-07] MEDS: DOCUSATE SODIUM 100 MG CAPSULE PO SCH (09:28)
[2019-08-07] MEDS: FERROUS SULFATE 325 MG TABLET PO SCH (09:28)
[2019-08-07] MEDS: SODIUM CHLORIDE 0.9% 1,000 ML IV SCH (09:35)
[2019-08-07 11:51] VITALS: BP 123/52
== END 2019-08-07 13:37 | disposition home or self-care (01) ==
LOC: N.ED 19:22 → N.EDINP 08-04 00:32 → INTOOBSV 08-04 00:32 → N.TELES 08-04 01:16
PROVIDERS: ADMIT Internal Medicine; ATTEND Internal Medicine

== ENCOUNTER 2021-03-20 19:31 | Inpatient (IN) ==
[2021-03-20] MEDS ORDERED: DEXTROSE 50% 25 GM/50 ML VIAL IV PRN (23:59)
[2021-03-20] MEDS ORDERED: GLUCAGON 1 MG VIAL IM PRN (23:59)
[2021-03-20] MEDS ORDERED: ONDANSETRON 4 MG/2 ML VIAL IV PRN (23:59)
[2021-03-21] MEDS ORDERED: SODIUM CHLORIDE 0.9% 1,000 ML IV PRN (00:09)
[2021-03-21 00:44] LABS: Basophils % 0.4 % (0.0-0.8); Eosinophils # 0.1 10*3/uL (0.0-0.87); Eosinophils % 1.4 % (0.00-10.9); Immature Granulocytes % 0.5 %; Immature Granulocytes Absolute 0.04 #; Lymphocytes # 1.8 10*3/uL (1.4-4.0); Lymphocytes % 21.2 % (21.3-54.2); Mean Corpuscular HGB Conc 32.6 GM/DL (32-36); Mean Corpuscular Volume 83.7 FL (87-102); Mean Platelet Volume 10.4 FL (9.6-12.0); Monocytes % 6.8 % (1.7-12.7); Neutrophils % 69.7 % (38.7-73.9); Platelet Count 177 T/CUMM (130-400); Red Blood Count 2.27 MC/CUMM (3.8-5.5); Red Cell Distribution Width 14.6 % (9.3-17.3); White Blood Count 8.4 T/CUMM (4-12)
[2021-03-21 00:53] LABS: Hemoglobin 6.2 GM/DL (12.0-16.0)
[2021-03-21 01:11] LABS: Folate 12.15 NG/ML (5.38-24.0); Vitamin B12 > 2000 PG/ML (211-911)
[2021-03-21 02:04] LABS: Sedimentation Rate-Westergren 95 MM/HR (0-30)
[2021-03-21] MEDS: ACETAMINOPHEN 325 MG TABLET PO PRN (03:00)
[2021-03-21 08:08] LABS: Alanine Aminotransferase 35 U/L (13-56); Albumin 3.5 G/DL (3.4-5.0); Alkaline Phosphatase 105 U/L (45-117); Aspartate Amino Transferase 20 U/L (0-37); Bilirubin,Total < 0.39 MG/DL (0.2-1.0); Blood Urea Nitrogen 84 MG/DL (7-18); Calcium 7.9 MG/DL (8.5-10.1); Carbon Dioxide 15 MMOL/L (21-32); Estimated Glom Filtration Rate 3 ML/MIN; Glucose 87 MG/DL (74-106); Osmolality,Calculated 299.7 MOS/KG (273-304); Potassium 5.4 MMOL/L (3.5-5.1); Sodium 138 MMOL/L (136-145); Total Protein 7.3 G/DL (6.4-8.2)
[2021-03-21 08:45] LABS: % Iron Saturation 30.9 % (18-50)
[2021-03-21 09:08] LABS: Hemoglobin A1 (Alkaline) 97.8 % (96.5-98.5); Hemoglobin A2 (Alkaline) 2.2 % (1.5-3.5)
[2021-03-21] MEDS ORDERED: SODIUM POLYSTYRENE SULFATE 15 GM/60 ML BOTTLE PO STA (09:20)
[2021-03-21] MEDS: PANTOPRAZOLE 40 MG TABLET PO SCH (09:42)
[2021-03-21] MEDS: FERROUS SULFATE 325 MG TABLET PO SCH (09:42)
[2021-03-21] MEDS: ASCORBIC ACID 500 MG TABLET PO SCH ×2 (09:43→20:48)
[2021-03-21] MEDS: LEVOTHYROXINE 100 MCG TABLET PO SCH (09:46)
[2021-03-21 09:56] LABS: Basophils % 0.2 % (0.0-0.8); Eosinophils # 0.1 10*3/uL (0.0-0.87); Eosinophils % 1.6 % (0.00-10.9); Hematocrit 30.2 VOL% (35.7-47.0); Immature Granulocytes % 0.6 %; Immature Granulocytes Absolute 0.05 #; Lymphocytes # 1.6 10*3/uL (1.4-4.0); Lymphocytes % 17.3 % (21.3-54.2); Mean Corpuscular HGB Conc 31.8 GM/DL (32-36); Mean Platelet Volume 10.5 FL (9.6-12.0); Monocytes % 6.4 % (1.7-12.7); Neutrophils % 73.9 % (38.7-73.9); Platelet Count 174 T/CUMM (130-400); Red Cell Distribution Width 14.9 % (9.3-17.3); White Blood Count 8.9 T/CUMM (4-12)
[2021-03-21 09:59] LABS: Red Blood Count 3.51 MC/CUMM (3.8-5.5)
[2021-03-21 10:00] LABS: Hemoglobin 9.6 GM/DL (12.0-16.0)
[2021-03-21 13:37] LABS: Calcium 7.6 MG/DL (8.5-10.1); Osmolality,Calculated 300.7 MOS/KG (273-304); Potassium 5.1 MMOL/L (3.5-5.1)
[2021-03-21 15:58] LABS: Hepatitis B Core IgM Quant 0.12 Index; Hepatitis B Surface Ag Quant < 0.10 Index; Hepatitis B Surface Ag Result Non-Reactive (NonReactive); Hepatitis C Virus Ab Quant 0.02 Index; Hepatitis C Virus Ab Result Non-Reactive (NonReactive)
[2021-03-21] MEDS: ROSUVASTATIN 20 MG TABLET PO SCH (20:48)
[2021-03-21] MEDS: ASPIRIN CHEW 81 MG TABLET PO SCH (20:48)
[2021-03-22 05:16] LABS: Basophils % 0.5 % (0.0-0.8); Eosinophils # 0.2 10*3/uL (0.0-0.87); Hematocrit 28.5 VOL% (35.7-47.0); Hemoglobin 9.3 GM/DL (12.0-16.0); Immature Granulocytes % 0.5 %; Immature Granulocytes Absolute 0.04 #; Lymphocytes # 1.5 10*3/uL (1.4-4.0); Lymphocytes % 19.8 % (21.3-54.2); Mean Corpuscular HGB Conc 32.6 GM/DL (32-36); Mean Corpuscular Volume 84.3 FL (87-102); Mean Platelet Volume 11.2 FL (9.6-12.0); Neutrophils % 71.2 % (38.7-73.9); Platelet Count 188 T/CUMM (130-400); Red Blood Count 3.38 MC/CUMM (3.8-5.5); Red Cell Distribution Width 14.7 % (9.3-17.3); White Blood Count 7.7 T/CUMM (4-12)
[2021-03-22 05:49] LABS: Osmolality,Calculated 306.1 MOS/KG (273-304); Potassium 4.8 MMOL/L (3.5-5.1)
[2021-03-22] MEDS: LEVOTHYROXINE 100 MCG TABLET PO SCH (06:30)
[2021-03-22] MEDS: FERROUS SULFATE 325 MG TABLET PO SCH (09:17)
[2021-03-22] MEDS: PANTOPRAZOLE 40 MG TABLET PO SCH (09:17)
[2021-03-22] MEDS: ASCORBIC ACID 500 MG TABLET PO SCH ×2 (09:17→21:02)
[2021-03-22] MEDS ORDERED: CLINDAMYCIN INJ 900 MG/50 ML PREMIX IV ONE (09:45)
[2021-03-22] MEDS ORDERED: HEPARIN 5,000 UNIT/1 ML VIAL ONE (09:51)
[2021-03-22] MEDS ORDERED: BUPIVACAINE MPF 0.25% 30 ML VIAL ONE (09:51)
[2021-03-22] MEDS ORDERED: LIDOCAINE 1%/EPI INJ 20 ML VIAL ONE (09:51)
[2021-03-22] MEDS ORDERED: KETAMINE 500 MG/10 ML VIAL ONE (10:00)
[2021-03-22] MEDS ORDERED: MIDAZOLAM 2 MG/2 ML VIAL ONE (10:00)
[2021-03-22] MEDS ORDERED: LIDOCAINE 2% 5 ML VIAL ONE (10:00)
[2021-03-22] MEDS ORDERED: ETOMIDATE 40 MG/20 ML VIAL IV ONE (10:00)
[2021-03-22] MEDS ORDERED: ONDANSETRON 4 MG/2 ML VIAL ONE (10:30)
[2021-03-22] MEDS ORDERED: SODIUM CHLORIDE 0.9% 250 ML IV SCH (10:30)
[2021-03-22] MEDS ORDERED: HEPARIN 10,000 UNIT/10 ML VIAL IV SCH (17:45)
[2021-03-22] MEDS: ROSUVASTATIN 20 MG TABLET PO SCH (21:02)
[2021-03-22] MEDS: ASPIRIN CHEW 81 MG TABLET PO SCH (21:02)
[2021-03-22] MEDS: ACETAMINOPHEN 325 MG TABLET PO PRN (21:03)
[2021-03-22] MEDS: METOPROLOL TARTRATE 25 MG TABLET PO SCH (21:05)
[2021-03-23] MEDS: LEVOTHYROXINE 100 MCG TABLET PO SCH (06:16)
[2021-03-23 06:18] LABS: Basophils % 0.4 % (0.0-0.8); Eosinophils # 0.1 10*3/uL (0.0-0.87); Eosinophils % 1.9 % (0.00-10.9); Hemoglobin 9.5 GM/DL (12.0-16.0); Immature Granulocytes % 0.4 %; Immature Granulocytes Absolute 0.03 #; Lymphocytes # 1.3 10*3/uL (1.4-4.0); Lymphocytes % 17.9 % (21.3-54.2); Mean Corpuscular HGB Conc 32.8 GM/DL (32-36); Mean Corpuscular Volume 83.6 FL (87-102); Mean Platelet Volume 10.7 FL (9.6-12.0); Monocytes % 8.6 % (1.7-12.7); Neutrophils % 70.8 % (38.7-73.9); Platelet Count 173 T/CUMM (130-400); Red Blood Count 3.47 MC/CUMM (3.8-5.5); Red Cell Distribution Width 14.5 % (9.3-17.3); White Blood Count 7.3 T/CUMM (4-12)
[2021-03-23 06:36] LABS: Calcium 7.9 MG/DL (8.5-10.1); Osmolality,Calculated 292.3 MOS/KG (273-304); Potassium 4.4 MMOL/L (3.5-5.1)
[2021-03-23] MEDS: FERROUS SULFATE 325 MG TABLET PO SCH (14:15)
[2021-03-23] MEDS: PANTOPRAZOLE 40 MG TABLET PO SCH (14:16)
[2021-03-23] MEDS: ASCORBIC ACID 500 MG TABLET PO SCH ×2 (14:16→20:35)
[2021-03-23] MEDS: amLODIPine 10 MG TABLET PO SCH (14:16)
[2021-03-23] MEDS: METOPROLOL TARTRATE 25 MG TABLET PO SCH ×2 (14:16→20:35)
[2021-03-23] MEDS: ASPIRIN CHEW 81 MG TABLET PO SCH (20:35)
[2021-03-23] MEDS: ROSUVASTATIN 20 MG TABLET PO SCH (20:35)
[2021-03-24] MEDS: LEVOTHYROXINE 100 MCG TABLET PO SCH (06:03)
[2021-03-24 06:29] LABS: Basophils % 0.3 % (0.0-0.8); Eosinophils # 0.1 10*3/uL (0.0-0.87); Eosinophils % 1.8 % (0.00-10.9); Hematocrit 28.8 VOL% (35.7-47.0); Hemoglobin 9.2 GM/DL (12.0-16.0); Immature Granulocytes % 0.3 %; Immature Granulocytes Absolute 0.02 #; Lymphocytes # 1.4 10*3/uL (1.4-4.0); Lymphocytes % 21.1 % (21.3-54.2); Mean Corpuscular HGB Conc 31.9 GM/DL (32-36); Mean Corpuscular Volume 86.2 FL (87-102); Mean Platelet Volume 11.2 FL (9.6-12.0); Monocytes % 9.6 % (1.7-12.7); Neutrophils % 66.9 % (38.7-73.9); Platelet Count 167 T/CUMM (130-400); Red Blood Count 3.34 MC/CUMM (3.8-5.5); Red Cell Distribution Width 14.3 % (9.3-17.3); White Blood Count 6.8 T/CUMM (4-12)
[2021-03-24 06:40] LABS: Calcium 7.8 MG/DL (8.5-10.1); Osmolality,Calculated 281.4 MOS/KG (273-304); Potassium 4.2 MMOL/L (3.5-5.1)
[2021-03-24] MEDS: METOPROLOL TARTRATE 25 MG TABLET PO SCH ×2 (08:55→20:39)
[2021-03-24] MEDS: amLODIPine 10 MG TABLET PO SCH (08:55)
[2021-03-24] MEDS: FERROUS SULFATE 325 MG TABLET PO SCH (08:55)
[2021-03-24] MEDS: ASCORBIC ACID 500 MG TABLET PO SCH ×2 (08:55→20:38)
[2021-03-24] MEDS: PANTOPRAZOLE 40 MG TABLET PO SCH (08:56)
[2021-03-24] MEDS: ASPIRIN CHEW 81 MG TABLET PO SCH (20:38)
[2021-03-24] MEDS: ROSUVASTATIN 20 MG TABLET PO SCH (20:38)
[2021-03-25] MEDS: LEVOTHYROXINE 100 MCG TABLET PO SCH (06:02)
[2021-03-25 06:46] LABS: Basophils % 0.4 % (0.0-0.8); Eosinophils # 0.1 10*3/uL (0.0-0.87); Hematocrit 28.4 VOL% (35.7-47.0); Hemoglobin 8.9 GM/DL (12.0-16.0); Immature Granulocytes % 0.3 %; Immature Granulocytes Absolute 0.02 #; Lymphocytes # 1.5 10*3/uL (1.4-4.0); Lymphocytes % 21.5 % (21.3-54.2); Mean Corpuscular HGB Conc 31.3 GM/DL (32-36); Mean Corpuscular Volume 86.3 FL (87-102); Mean Platelet Volume 11.3 FL (9.6-12.0); Monocytes % 8.9 % (1.7-12.7); Neutrophils % 66.9 % (38.7-73.9); Platelet Count 162 T/CUMM (130-400); Red Blood Count 3.29 MC/CUMM (3.8-5.5); White Blood Count 7.2 T/CUMM (4-12)
[2021-03-25 07:09] LABS: Calcium 8.2 MG/DL (8.5-10.1); Osmolality,Calculated 281.7 MOS/KG (273-304); Potassium 4.5 MMOL/L (3.5-5.1)
[2021-03-25] MEDS: amLODIPine 10 MG TABLET PO SCH (08:28)
[2021-03-25] MEDS: METOPROLOL TARTRATE 25 MG TABLET PO SCH (08:28)
[2021-03-25] MEDS: ASCORBIC ACID 500 MG TABLET PO SCH (08:29)
[2021-03-25] MEDS: FERROUS SULFATE 325 MG TABLET PO SCH (08:29)
[2021-03-25] MEDS: PANTOPRAZOLE 40 MG TABLET PO SCH (08:29)
[2021-03-25 12:48] VITALS: BP 142/69
== END 2021-03-25 16:18 | disposition home or self-care (01) | DRG 673 ==
LOC: N.3E 23:53 → SUATTDRO 23:53
PROVIDERS: ADMIT Internal Medicine; ATTEND Emergency Medicine

== ENCOUNTER 2022-04-28 18:30 | Inpatient (IN) ==
[2022-04-28 19:37] LABS: Basophils % 0.2 % (0.0-0.8); Hematocrit 19.2 VOL% (35.7-47.0); Immature Granulocytes % 1.8 %; Immature Granulocytes Absolute 0.34 #; Lymphocytes # 0.8 10*3/uL (1.4-4.0); Lymphocytes % 4.4 % (21.3-54.2); Mean Corpuscular HGB Conc 32.8 GM/DL (32-36); Mean Corpuscular Volume 83.1 FL (87-102); Mean Platelet Volume 13.1 FL (9.6-12.0); Monocytes # 0.5 10*3/uL (0.11-0.8); Monocytes % 2.8 % (1.7-12.7); Neutrophils % 90.8 % (38.7-73.9); Platelet Count 114 T/CUMM (130-400); Red Blood Count 2.31 MC/CUMM (3.8-5.5); Red Cell Distribution Width 17.8 % (9.3-17.3); White Blood Count 18.9 T/CUMM (4-12)
[2022-04-28 19:40] LABS: Hemoglobin 6.3 GM/DL (12.0-16.0)
[2022-04-28 19:47] LABS: INR 1.3; PT Patient Result 14.1 SECS (10.5-12.0); Partial Thromboplastin Time 29.6 SECS (23.7-32.9)
[2022-04-28 20:03] LABS: Albumin 1.9 G/DL (3.4-5.0); Bilirubin,Total 0.5 MG/DL (0.20-1.00); Calcium 7.4 MG/DL (8.5-10.1); Osmolality,Calculated 275.5 MOS/KG (273-304); Total Protein 5.2 G/DL (6.4-8.2)
[2022-04-28 20:06] LABS: Potassium 1.7 MMOL/L (3.5-5.1)
[2022-04-28] MEDS ORDERED: POTASSIUM CHLORIDE 20 MEQ TABLET PO STA (20:20)
[2022-04-28] MEDS ORDERED: SODIUM CHLOR 0.9% KCL 40 MEQ 40 MEQ/1,000 ML BAG IV SCH (20:30)
[2022-04-28] MEDS ORDERED: ACETAMINOPHEN 325 MG TABLET PO PRN (20:31)
[2022-04-28 20:39] LABS: Acanthocytes 1+; Band Neutrophils 24 % (0-10); Lymphocytes 2 % (20-55); Ovalocytes 1+; Platelet Estimate Decreased; Poikilocytosis 1+; Target Cells 1+; Total Cells Counted 100
[2022-04-28] MEDS ORDERED: SODIUM CHLORIDE 0.9% 1,000 ML IV PRN (20:39)
[2022-04-28] MEDS ORDERED: MAGNESIUM SULF RIDER 2 GM/50 ML PREMIX IV ONE (20:41)
[2022-04-28] MEDS: POTASSIUM CHLORIDE 20 MEQ TABLET PO SCH (21:11)
[2022-04-28] MEDS ORDERED: DICYCLOMINE 20 MG TABLET PO PRN (21:34)
[2022-04-28 21:37] LABS: Calcium 7.8 MG/DL (8.5-10.1); Osmolality,Calculated 277.4 MOS/KG (273-304)
[2022-04-28 21:42] LABS: Bilirubin,Total 0.5 MG/DL (0.20-1.00); Total Protein 5.4 G/DL (6.4-8.2)
[2022-04-28 21:48] LABS: Potassium 1.7 MMOL/L (3.5-5.1)
[2022-04-28] MEDS ORDERED: POTASSIUM CHLORIDE 20 MEQ TABLET PO SCH (23:00)
[2022-04-29 01:09] LABS: Basophils % 0.2 % (0.0-0.8); Eosinophils % 0.1 % (0.00-10.9); Hematocrit 19.9 VOL% (35.7-47.0); Immature Granulocytes Absolute 0.17 #; Lymphocytes # 1.4 10*3/uL (1.4-4.0); Lymphocytes % 8.3 % (21.3-54.2); Mean Corpuscular HGB Conc 31.2 GM/DL (32-36); Mean Corpuscular Volume 88.1 FL (87-102); Mean Platelet Volume 13.3 FL (9.6-12.0); Monocytes # 0.6 10*3/uL (0.11-0.8); Monocytes % 3.2 % (1.7-12.7); Neutrophils % 87.2 % (38.7-73.9); Platelet Count 104 T/CUMM (130-400); Red Blood Count 2.26 MC/CUMM (3.8-5.5); Red Cell Distribution Width 18.5 % (9.3-17.3); White Blood Count 17.3 T/CUMM (4-12)
[2022-04-29] MEDS: POTASSIUM CHLORIDE 20 MEQ TABLET PO SCH (01:10)
[2022-04-29 01:27] LABS: Hemoglobin 6.2 GM/DL (12.0-16.0)
[2022-04-29] MEDS ORDERED: FERROUS SULFATE 325 MG TABLET PO SCH (09:00)
[2022-04-29] MEDS: METOPROLOL TARTRATE 50 MG TABLET PO SCH ×2 (09:56→21:00)
[2022-04-29] MEDS: ASCORBIC ACID 500 MG TABLET PO SCH ×2 (09:56→20:59)
[2022-04-29] MEDS: SUCRALFATE 1 GM TABLET PO SCH ×3 (09:56→20:59)
[2022-04-29] MEDS: DONEPEZIL 10 MG TABLET PO SCH ×2 (09:58→21:00)
[2022-04-29 10:49] LABS: Basophils # 0.1 10*3/uL (0.0-0.2); Basophils % 0.3 % (0.0-0.8); Eosinophils # 0.1 10*3/uL (0.0-0.87); Eosinophils % 0.8 % (0.00-10.9); Hematocrit 18.9 VOL% (35.7-47.0); Immature Granulocytes % 1.1 %; Immature Granulocytes Absolute 0.17 #; Mean Corpuscular HGB Conc 32.3 GM/DL (32-36); Mean Corpuscular Volume 82.2 FL (87-102); Mean Platelet Volume 11.7 FL (9.6-12.0); Monocytes # 0.6 10*3/uL (0.11-0.8); Monocytes % 3.8 % (1.7-12.7); Platelet Count 117 T/CUMM (130-400); Red Cell Distribution Width 18.4 % (9.3-17.3)
[2022-04-29 11:06] LABS: Hemoglobin 6.1 GM/DL (12.0-16.0)
[2022-04-29 11:31] LABS: Albumin 1.8 G/DL (3.4-5.0); Bilirubin,Total 0.5 MG/DL (0.20-1.00); Calcium 7.7 MG/DL (8.5-10.1); Osmolality,Calculated 275.5 MOS/KG (273-304); Total Protein 5.1 G/DL (6.4-8.2)
[2022-04-29 11:33] LABS: Potassium 2.4 MMOL/L (3.5-5.1)
[2022-04-29 12:41] LABS: Macrocytosis 1+; Ovalocytes Few; Platelet Estimate Adequate
[2022-04-29 12:42] LABS: Anisocytosis 2+
[2022-04-29] MEDS ORDERED: HEPARIN 1,000 UNIT/1 ML VIAL IV ONE (13:00)
[2022-04-29] MEDS: PANTOPRAZOLE 40 MG VIAL IV SCH ×2 (16:02→20:59)
[2022-04-29] MEDS ORDERED: ASPIRIN CHEW 81 MG TABLET PO SCH (19:00)
[2022-04-29 20:42] LABS: Hematocrit 28.9 VOL% (35.7-47.0); Hemoglobin 9.9 GM/DL (12.0-16.0)
[2022-04-29] MEDS: ROSUVASTATIN 20 MG TABLET PO SCH (20:59)
[2022-04-29 21:03] LABS: Calcium 7.4 MG/DL (8.5-10.1); Osmolality,Calculated 276.7 MOS/KG (273-304)
[2022-04-29 21:11] LABS: Potassium 2.1 MMOL/L (3.5-5.1)
[2022-04-29] MEDS ORDERED: POTASSIUM CHLORIDE 20 MEQ TABLET PO ONE (22:48)
[2022-04-30] MEDS: POTASSIUM CHLORIDE 20 MEQ TABLET PO SCH ×3 (00:48→04:16)
[2022-04-30 05:33] LABS: Basophils # 0.1 10*3/uL (0.0-0.2); Basophils % 0.5 % (0.0-0.8); Eosinophils # 0.2 10*3/uL (0.0-0.87); Eosinophils % 1.8 % (0.00-10.9); Hematocrit 33.2 VOL% (35.7-47.0); Hemoglobin 11.3 GM/DL (12.0-16.0); Immature Granulocytes % 0.7 %; Immature Granulocytes Absolute 0.09 #; Lymphocytes # 1.5 10*3/uL (1.4-4.0); Lymphocytes % 11.2 % (21.3-54.2); Mean Corpuscular Volume 84.3 FL (87-102); Mean Platelet Volume 12.2 FL (9.6-12.0); Monocytes # 0.6 10*3/uL (0.11-0.8); Monocytes % 4.4 % (1.7-12.7); Neutrophils % 81.4 % (38.7-73.9); Platelet Count 105 T/CUMM (130-400); Red Blood Count 3.94 MC/CUMM (3.8-5.5); Red Cell Distribution Width 17.4 % (9.3-17.3)
[2022-04-30 05:34] LABS: Calcium 7.4 MG/DL (8.5-10.1); Osmolality,Calculated 273.8 MOS/KG (273-304); Potassium 3.3 MMOL/L (3.5-5.1)
[2022-04-30] MEDS ORDERED: LACTATED RINGERS 1,000 ML IV SCH (08:00)
[2022-04-30] MEDS: SODIUM CHLORIDE 0.9% 1,000 ML IV SCH (09:36)
[2022-04-30] MEDS ORDERED: PHENYLEPHRINE 1 MG/10 ML SYRINGE IV ONE (09:59)
[2022-04-30] MEDS ORDERED: propofoL 200 MG/20 ML VIAL IV ONE (09:59)
[2022-04-30] MEDS ORDERED: LIDOCAINE 2% 5 ML VIAL ONE (09:59)
[2022-04-30] MEDS: ASCORBIC ACID 500 MG TABLET PO SCH ×2 (12:12→21:34)
[2022-04-30] MEDS: SUCRALFATE 1 GM TABLET PO SCH ×3 (12:12→21:35)
[2022-04-30] MEDS: DONEPEZIL 10 MG TABLET PO SCH ×2 (12:12→21:34)
[2022-04-30] MEDS: METOPROLOL TARTRATE 50 MG TABLET PO SCH ×3 (12:12→21:34)
[2022-04-30] MEDS: PANTOPRAZOLE 40 MG VIAL IV SCH ×2 (12:12→21:32)
[2022-04-30] MEDS ORDERED: ALBUMIN 25% 25 GM/100 ML VIAL IV SCH (13:31)
[2022-04-30] MEDS ORDERED: DIPHENOXYLATE/ATROPINE 2.5-0.025 MG TABLET PO PRN (13:51)
[2022-04-30] MEDS ORDERED: HEPARIN 10,000 UNIT/10 ML VIAL IV SCH (14:15)
[2022-04-30] MEDS ORDERED: POTASSIUM BICARB EFFERVESCENT 20 MEQ TAB.EFF PO ONE (15:00)
[2022-04-30] MEDS ORDERED: diphenhydrAMINE 50 MG/1 ML VIAL IV ONE (15:10)
[2022-04-30] MEDS ORDERED: DILTIAZEM 25 MG/5 ML VIAL IV ONE (17:17)
[2022-04-30] MEDS: ROSUVASTATIN 20 MG TABLET PO SCH (21:34)
[2022-05-01 05:59] LABS: Basophils # 0.1 10*3/uL (0.0-0.2); Basophils % 0.7 % (0.0-0.8); Eosinophils # 0.2 10*3/uL (0.0-0.87); Eosinophils % 2.3 % (0.00-10.9); Hematocrit 26.1 VOL% (35.7-47.0); Hemoglobin 8.8 GM/DL (12.0-16.0); Immature Granulocytes % 0.8 %; Immature Granulocytes Absolute 0.08 #; Lymphocytes # 1.6 10*3/uL (1.4-4.0); Lymphocytes % 16.2 % (21.3-54.2); Mean Corpuscular HGB Conc 33.7 GM/DL (32-36); Mean Corpuscular Volume 83.4 FL (87-102); Mean Platelet Volume 12.2 FL (9.6-12.0); Monocytes # 0.5 10*3/uL (0.11-0.8); Monocytes % 5.3 % (1.7-12.7); Neutrophils % 74.7 % (38.7-73.9); Platelet Count 116 T/CUMM (130-400); Red Blood Count 3.13 MC/CUMM (3.8-5.5); Red Cell Distribution Width 17.8 % (9.3-17.3); White Blood Count 9.7 T/CUMM (4-12)
[2022-05-01] MEDS: METOPROLOL TARTRATE 50 MG TABLET PO SCH ×2 (09:03→21:34)
[2022-05-01] MEDS: PANTOPRAZOLE 40 MG VIAL IV SCH ×2 (09:03→21:35)
[2022-05-01] MEDS: SUCRALFATE 1 GM TABLET PO SCH ×3 (10:18→21:35)
[2022-05-01] MEDS: ASCORBIC ACID 500 MG TABLET PO SCH ×2 (10:18→21:34)
[2022-05-01] MEDS: DONEPEZIL 10 MG TABLET PO SCH ×2 (10:18→21:35)
[2022-05-01] MEDS: SODIUM CHLORIDE 0.9% 1,000 ML IV SCH (10:19)
[2022-05-01] MEDS ORDERED: TISSUE ADHESIVE 1 EACH APPLICATOR TOP ONE (10:30)
[2022-05-01] MEDS ORDERED: LIDOCAINE 1%/EPI INJ 20 ML VIAL ONE (10:31)
[2022-05-01] MEDS ORDERED: propofoL 200 MG/20 ML VIAL IV ONE (10:47)
[2022-05-01] MEDS ORDERED: LIDOCAINE 2% 5 ML VIAL ONE ×2 (10:48→11:39)
[2022-05-01] MEDS ORDERED: fentaNYL 100 MCG/2 ML VIAL ONE (10:50)
[2022-05-01] MEDS ORDERED: ONDANSETRON 4 MG/2 ML VIAL ONE (10:51)
[2022-05-01] MEDS ORDERED: SODIUM CHLORIDE 0.9% 250 ML IV SCH (11:00)
[2022-05-01] MEDS ORDERED: PHENYLEPHRINE 1 MG/10 ML SYRINGE IV ONE (11:15)
[2022-05-01] MEDS ORDERED: SEVOFLURANE 1 UNIT/15 MINUTE INH ONE (11:28)
[2022-05-01 14:34] LABS: Albumin 2.2 G/DL (3.4-5.0); Calcium 7.3 MG/DL (8.5-10.1); Osmolality,Calculated 279.3 MOS/KG (273-304); Phosphorous 0.7 MG/DL (2.5-4.9)
[2022-05-01] MEDS: cefTRIAXone 2,000 MG in SODIUM CHLORIDE 0.9% 100 ML IV SCH (16:59)
[2022-05-01] MEDS: ROSUVASTATIN 20 MG TABLET PO SCH (21:34)
[2022-05-02 05:27] LABS: Basophils # 0.1 10*3/uL (0.0-0.2); Basophils % 0.8 % (0.0-0.8); Eosinophils # 0.3 10*3/uL (0.0-0.87); Eosinophils % 2.9 % (0.00-10.9); Hematocrit 29.1 VOL% (35.7-47.0); Hemoglobin 9.5 GM/DL (12.0-16.0); Immature Granulocytes Absolute 0.11 #; Lymphocytes # 1.8 10*3/uL (1.4-4.0); Lymphocytes % 16.7 % (21.3-54.2); Mean Corpuscular HGB Conc 32.6 GM/DL (32-36); Mean Corpuscular Volume 86.6 FL (87-102); Mean Platelet Volume 12.5 FL (9.6-12.0); Monocytes # 0.6 10*3/uL (0.11-0.8); Monocytes % 5.7 % (1.7-12.7); Neutrophils % 72.9 % (38.7-73.9); Platelet Count 120 T/CUMM (130-400); Red Blood Count 3.36 MC/CUMM (3.8-5.5); Red Cell Distribution Width 18.2 % (9.3-17.3); White Blood Count 10.6 T/CUMM (4-12)
[2022-05-02 05:58] LABS: Calcium 7.4 MG/DL (8.5-10.1); Osmolality,Calculated 280.3 MOS/KG (273-304); Phosphorous 0.8 MG/DL (2.5-4.9); Potassium 3.1 MMOL/L (3.5-5.1)
[2022-05-02] MEDS: SUCRALFATE 1 GM TABLET PO SCH ×3 (12:58→21:22)
[2022-05-02] MEDS: METOPROLOL TARTRATE 50 MG TABLET PO SCH ×2 (13:43→21:22)
[2022-05-02] MEDS: DONEPEZIL 10 MG TABLET PO SCH ×2 (13:43→21:22)
[2022-05-02] MEDS: PANTOPRAZOLE 40 MG VIAL IV SCH ×2 (13:43→21:20)
[2022-05-02] MEDS: ASCORBIC ACID 500 MG TABLET PO SCH ×2 (13:44→21:22)
[2022-05-02] MEDS ORDERED: GLUCAGON 1 MG VIAL IM PRN (13:50)
[2022-05-02] MEDS ORDERED: DEXTROSE 10% 250 ML BAG IV PRN (13:50)
[2022-05-02] MEDS: POTASSIUM CHLORIDE 20 MEQ TABLET PO SCH (14:44)
[2022-05-02] MEDS: DICYCLOMINE 20 MG TABLET PO SCH ×2 (14:45→21:22)
[2022-05-02] MEDS ORDERED: POTASSIUM CHLORIDE 20 MEQ TABLET PO ONE (15:00)
[2022-05-02] MEDS: ALBUTEROL/IPRATROPIUM 3 ML NEB RESP TX SCH ×3 (15:10→23:40)
[2022-05-02] MEDS: cefTRIAXone 2,000 MG in SODIUM CHLORIDE 0.9% 100 ML IV SCH (16:31)
[2022-05-02] MEDS: DIPHENOXYLATE/ATROPINE 2.5-0.025 MG TABLET PO SCH (17:17)
[2022-05-02] MEDS: HEPARIN 5,000 UNIT/1 ML VIAL SUBCUT SCH (21:19)
[2022-05-02] MEDS: MENTHOL/ZINC OXIDE OINT 71 GM JAR TOP SCH (21:22)
[2022-05-02] MEDS: ROSUVASTATIN 20 MG TABLET PO SCH (21:22)
[2022-05-03] MEDS: ALBUTEROL/IPRATROPIUM 3 ML NEB RESP TX SCH ×2 (03:58→07:30)
[2022-05-03 06:09] LABS: Basophils # 0.1 10*3/uL (0.0-0.2); Basophils % 0.7 % (0.0-0.8); Eosinophils # 0.3 10*3/uL (0.0-0.87); Eosinophils % 2.6 % (0.00-10.9); Hematocrit 29.8 VOL% (35.7-47.0); Hemoglobin 9.8 GM/DL (12.0-16.0); Immature Granulocytes % 1.2 %; Immature Granulocytes Absolute 0.12 #; Lymphocytes # 1.6 10*3/uL (1.4-4.0); Lymphocytes % 16.5 % (21.3-54.2); Mean Corpuscular HGB Conc 32.9 GM/DL (32-36); Mean Corpuscular Volume 85.6 FL (87-102); Mean Platelet Volume 12.2 FL (9.6-12.0); Monocytes # 0.5 10*3/uL (0.11-0.8); Monocytes % 4.9 % (1.7-12.7); NRBC # 0.02 10*3/uL; Neutrophils % 74.1 % (38.7-73.9); Platelet Count 136 T/CUMM (130-400); Red Blood Count 3.48 MC/CUMM (3.8-5.5); Red Cell Distribution Width 18.5 % (9.3-17.3); White Blood Count 9.8 T/CUMM (4-12)
[2022-05-03 06:25] LABS: Albumin 1.9 G/DL (3.4-5.0); Calcium 7.5 MG/DL (8.5-10.1); Osmolality,Calculated 277.3 MOS/KG (273-304); Phosphorous 0.9 MG/DL (2.5-4.9); Potassium 3.5 MMOL/L (3.5-5.1)
[2022-05-03 07:02] LABS: Platelet Estimate Normal
[2022-05-03] MEDS: POTASSIUM CHLORIDE 20 MEQ TABLET PO SCH (10:08)
[2022-05-03] MEDS: DIPHENOXYLATE/ATROPINE 2.5-0.025 MG TABLET PO SCH (10:08)
[2022-05-03] MEDS: SUCRALFATE 1 GM TABLET PO SCH (10:09)
[2022-05-03] MEDS: DONEPEZIL 10 MG TABLET PO SCH (10:09)
[2022-05-03] MEDS: DICYCLOMINE 20 MG TABLET PO SCH (10:09)
[2022-05-03] MEDS: ASCORBIC ACID 500 MG TABLET PO SCH (10:09)
[2022-05-03] MEDS: METOPROLOL TARTRATE 50 MG TABLET PO SCH (10:09)
[2022-05-03] MEDS: HEPARIN 5,000 UNIT/1 ML VIAL SUBCUT SCH (10:09)
[2022-05-03] MEDS: PANTOPRAZOLE 40 MG VIAL IV SCH (10:10)
[2022-05-03] MEDS: MENTHOL/ZINC OXIDE OINT 71 GM JAR TOP SCH (10:10)
[2022-05-03 12:08] VITALS: BP 130/82
== END 2022-05-03 12:50 | disposition home health service (06) | DRG 356 ==
LOC: EDUNIT# → EDBD → N.ED 18:30 → N.EDINP 20:31 → N.5E 20:55
PROVIDERS: ADMIT Internal Medicine; ATTEND Internal Medicine

== ENCOUNTER 2022-05-05 15:14 | Observation (INO) ==
[2022-05-05] MEDS ORDERED: TISSUE ADHESIVE 1 EACH APPLICATOR TOP ONE (16:21)
[2022-05-05 17:37] LABS: Basophils # 0.1 10*3/uL (0.0-0.2); Basophils % 0.8 % (0.0-0.8); Eosinophils # 0.2 10*3/uL (0.0-0.87); Eosinophils % 1.7 % (0.00-10.9); Hematocrit 33.1 VOL% (35.7-47.0); Hemoglobin 10.5 GM/DL (12.0-16.0); Immature Granulocytes Absolute 0.21 #; Lymphocytes # 1.3 10*3/uL (1.4-4.0); Lymphocytes % 12.4 % (21.3-54.2); Mean Corpuscular HGB Conc 31.7 GM/DL (32-36); Mean Corpuscular Volume 89.2 FL (87-102); Monocytes # 0.4 10*3/uL (0.11-0.8); Monocytes % 3.4 % (1.7-12.7); Neutrophils % 79.7 % (38.7-73.9); Platelet Count 57 T/CUMM (130-400); Red Blood Count 3.71 MC/CUMM (3.8-5.5); White Blood Count 10.8 T/CUMM (4-12)
[2022-05-05 17:55] LABS: Bilirubin,Total 0.5 MG/DL (0.20-1.00); Calcium 7.9 MG/DL (8.5-10.1); Osmolality,Calculated 276.4 MOS/KG (273-304); Potassium 3.2 MMOL/L (3.5-5.1); Total Protein 5.7 G/DL (6.4-8.2)
[2022-05-05] MEDS ORDERED: ONDANSETRON 4 MG/2 ML VIAL IV PRN (19:10)
[2022-05-05] MEDS ORDERED: ACETAMINOPHEN 325 MG TABLET PO PRN (19:10)
[2022-05-05] MEDS ORDERED: GLUCAGON 1 MG VIAL IM PRN (19:14)
[2022-05-05] MEDS ORDERED: DICYCLOMINE 20 MG TABLET PO PRN (19:16)
[2022-05-05] MEDS ORDERED: LACTATED RINGERS 1,000 ML IV SCH ×2 (19:30→20:00)
[2022-05-05] MEDS ORDERED: DEXTROSE 10% 250 ML BAG IV PRN (19:36)
[2022-05-05] MEDS: DIPHENOXYLATE/ATROPINE 2.5-0.025 MG TABLET PO SCH (21:22)
[2022-05-05] MEDS: METOPROLOL TARTRATE 50 MG TABLET PO SCH (21:23)
[2022-05-05] MEDS: SUCRALFATE 1 GM TABLET PO SCH (21:23)
[2022-05-05] MEDS: DONEPEZIL 10 MG TABLET PO SCH (23:24)
[2022-05-06 05:41] LABS: Basophils # 0.1 10*3/uL (0.0-0.2); Eosinophils # 0.2 10*3/uL (0.0-0.87); Eosinophils % 2.8 % (0.00-10.9); Hematocrit 29.3 VOL% (35.7-47.0); Hemoglobin 9.6 GM/DL (12.0-16.0); Immature Granulocytes % 1.9 %; Immature Granulocytes Absolute 0.16 #; Lymphocytes # 1.8 10*3/uL (1.4-4.0); Lymphocytes % 21.8 % (21.3-54.2); Mean Corpuscular HGB Conc 32.8 GM/DL (32-36); Mean Corpuscular Volume 86.2 FL (87-102); Monocytes # 0.5 10*3/uL (0.11-0.8); Monocytes % 5.5 % (1.7-12.7); Platelet Count 65 T/CUMM (130-400); Red Cell Distribution Width 18.7 % (9.3-17.3); White Blood Count 8.2 T/CUMM (4-12)
[2022-05-06 05:50] LABS: Calcium 7.9 MG/DL (8.5-10.1); Osmolality,Calculated 272.7 MOS/KG (273-304); Potassium 3.1 MMOL/L (3.5-5.1)
[2022-05-06 06:02] LABS: Hypochromia Slight; Microcytosis Slight; Platelet Estimate Decreased
[2022-05-06] MEDS: SUCRALFATE 1 GM TABLET PO SCH ×3 (09:00→21:50)
[2022-05-06] MEDS ORDERED: LEVOFLOXACIN 500 MG TABLET PO SCH (09:00)
[2022-05-06] MEDS ORDERED: POTASSIUM CHLORIDE 20 MEQ TABLET PO ONE (09:00)
[2022-05-06] MEDS: FERROUS SULFATE 325 MG TABLET PO SCH (13:46)
[2022-05-06] MEDS: DIPHENOXYLATE/ATROPINE 2.5-0.025 MG TABLET PO SCH ×2 (13:46→21:50)
[2022-05-06] MEDS: LEVOFLOXACIN 500 MG TABLET PO SCH (13:47)
[2022-05-06] MEDS: POTASSIUM CHLORIDE 20 MEQ TABLET PO SCH (13:47)
[2022-05-06] MEDS: PANTOPRAZOLE 40 MG TABLET PO SCH (13:47)
[2022-05-06] MEDS: METOPROLOL TARTRATE 50 MG TABLET PO SCH ×2 (13:48→21:50)
[2022-05-06] MEDS: LEVOTHYROXINE 125 MCG TABLET PO SCH (13:59)
[2022-05-06] MEDS ORDERED: ZINC OXIDE PASTE 113 GM TUBE TOP PRN (14:36)
[2022-05-06] MEDS: ROSUVASTATIN 20 MG TABLET PO SCH (21:49)
[2022-05-06] MEDS: DONEPEZIL 10 MG TABLET PO SCH (21:49)
[2022-05-07 05:33] LABS: Basophils # 0.1 10*3/uL (0.0-0.2); Basophils % 0.7 % (0.0-0.8); Eosinophils # 0.2 10*3/uL (0.0-0.87); Eosinophils % 3.3 % (0.00-10.9); Hematocrit 25.2 VOL% (35.7-47.0); Hemoglobin 8.2 GM/DL (12.0-16.0); Immature Granulocytes Absolute 0.14 #; Lymphocytes # 1.6 10*3/uL (1.4-4.0); Lymphocytes % 22.8 % (21.3-54.2); Mean Corpuscular HGB Conc 32.5 GM/DL (32-36); Mean Corpuscular Volume 87.2 FL (87-102); Monocytes # 0.4 10*3/uL (0.11-0.8); Monocytes % 6.1 % (1.7-12.7); Neutrophils % 65.1 % (38.7-73.9); Platelet Count 80 T/CUMM (130-400); Red Blood Count 2.89 MC/CUMM (3.8-5.5); Red Cell Distribution Width 18.6 % (9.3-17.3); White Blood Count 7.1 T/CUMM (4-12)
[2022-05-07 05:53] LABS: Calcium 7.8 MG/DL (8.5-10.1); Osmolality,Calculated 272.7 MOS/KG (273-304); Potassium 4.1 MMOL/L (3.5-5.1)
[2022-05-07 05:57] LABS: Platelet Estimate Decreased
[2022-05-07 05:58] LABS: Hypochromia Slight; Microcytosis Slight
[2022-05-07] MEDS: LEVOTHYROXINE 125 MCG TABLET PO SCH (06:26)
[2022-05-07] MEDS ORDERED: HEPARIN 10,000 UNIT/10 ML VIAL IV PRN (09:44)
[2022-05-07] MEDS: FERROUS SULFATE 325 MG TABLET PO SCH (12:03)
[2022-05-07] MEDS: METOPROLOL TARTRATE 50 MG TABLET PO SCH ×2 (12:03→21:06)
[2022-05-07] MEDS: DIPHENOXYLATE/ATROPINE 2.5-0.025 MG TABLET PO SCH ×2 (12:03→21:06)
[2022-05-07] MEDS: PANTOPRAZOLE 40 MG TABLET PO SCH (12:03)
[2022-05-07] MEDS: SUCRALFATE 1 GM TABLET PO SCH ×3 (12:03→21:05)
[2022-05-07] MEDS: POTASSIUM CHLORIDE 20 MEQ TABLET PO SCH (12:03)
[2022-05-07] MEDS: ROSUVASTATIN 20 MG TABLET PO SCH (21:05)
[2022-05-07] MEDS: DONEPEZIL 10 MG TABLET PO SCH (21:06)
[2022-05-07] MEDS: LEVOFLOXACIN 500 MG TABLET PO SCH (21:06)
[2022-05-08] MEDS: LEVOTHYROXINE 125 MCG TABLET PO SCH (05:39)
[2022-05-08 06:02] LABS: Basophils # 0.1 10*3/uL (0.0-0.2); Basophils % 0.9 % (0.0-0.8); Eosinophils # 0.2 10*3/uL (0.0-0.87); Eosinophils % 2.2 % (0.00-10.9); Hematocrit 26.8 VOL% (35.7-47.0); Hemoglobin 8.6 GM/DL (12.0-16.0); Immature Granulocytes % 1.6 %; Immature Granulocytes Absolute 0.12 #; Lymphocytes # 1.6 10*3/uL (1.4-4.0); Lymphocytes % 20.7 % (21.3-54.2); Mean Corpuscular HGB Conc 32.1 GM/DL (32-36); Mean Corpuscular Volume 88.4 FL (87-102); Mean Platelet Volume 13.5 FL (9.6-12.0); Monocytes # 0.3 10*3/uL (0.11-0.8); Monocytes % 4.4 % (1.7-12.7); Neutrophils % 70.2 % (38.7-73.9); Platelet Count 102 T/CUMM (130-400); Red Blood Count 3.03 MC/CUMM (3.8-5.5); Red Cell Distribution Width 18.8 % (9.3-17.3); White Blood Count 7.7 T/CUMM (4-12)
[2022-05-08 06:24] LABS: Osmolality,Calculated 272.5 MOS/KG (273-304)
[2022-05-08 06:30] LABS: Hypochromia 1+; Microcytosis 1+; Platelet Estimate Adequate
[2022-05-08 08:27] VITALS: BP 123/65
[2022-05-08] MEDS: DIPHENOXYLATE/ATROPINE 2.5-0.025 MG TABLET PO SCH (09:12)
[2022-05-08] MEDS: SUCRALFATE 1 GM TABLET PO SCH (09:12)
[2022-05-08] MEDS: METOPROLOL TARTRATE 50 MG TABLET PO SCH (09:12)
[2022-05-08] MEDS: FERROUS SULFATE 325 MG TABLET PO SCH (09:12)
[2022-05-08] MEDS: POTASSIUM CHLORIDE 20 MEQ TABLET PO SCH (09:12)
[2022-05-08] MEDS: PANTOPRAZOLE 40 MG TABLET PO SCH (09:12)
== END 2022-05-08 11:48 | disposition home health service (06) ==
LOC: EDUNIT# → N.EDINP 15:14 → N.ED 15:14 → N.5E 19:49
PROVIDERS: ADMIT Family Medicine; ATTEND Family Medicine